=== PATIENT | female | born 1955 | race Caucasian/White ===

== ENCOUNTER 2023-06-26 17:07 | Emergency (ER) | payer OTHER, MEDICAID, SELFPAY ==
[2023-06-26 17:16] VITALS: BMI 22.1
--- NOTE | 2023-06-26 17:19 | DI.RAD.S_ITS ---
PROCEDURE: XR WRIST LT MIN 3V INDICATIONS: fall off chair TECHNIQUE: 3 views of the wrist were acquired. COMPARISON: None. FINDINGS: Bones: Moderately impacted and mildly displaced distal radius intra-articular fracture with traumatic positive ulnar variance. Superimposed degenerative changes, particularly at the base of the thumb. Soft tissues: There is soft tissue swelling. IMPRESSION: Distal radius fracture. Dictated by: Jonny Kolb M.D. on 06/26/2023 at 18:13 Approved by: Jonny Kobl M.D. on 06/26/2023 at 18:14
[2023-06-26 17:26] VITALS: BP 133/82; PULSE 91; RESP 16; O2SAT 98
[2023-06-26] MEDS: HYDROCODONE/ACET 5/325 TABLET 1 TAB PO (19:21)
[2023-06-26 19:32] VITALS: BP 132/83; PULSE 97; RESP 18; O2SAT 96
--- NOTE | 2023-06-26 19:41 | ED.FALL ---
HPI - Fall General Chief Complaint: Fall Stated Complaint: fall no thinners Time Seen by Provider: 06/26/23 17:59 Source: patient Mode of arrival: EMS Limitations: no limitations History of Present Illness HPI Narrative: Patient is a 68-year-old female here for evaluation of a left wrist injury. Patient states she was trying to sit on a rolling chair when it rolled out from underneath her and she fell landing on an outstretched hand. No other injuries from the event. An immediate pain in her hand. No elbow discomfort. No shoulder discomfort. Does have swelling to the left wrist. Related Data Previous Rx's Medication Instructions Recorded fluorouracil 5 % topical cream 1 phillip topical BID ##40 07/23/16 (Efudex) pimecrolimus 1 % topical cream 1 applic topical BID PRN 02/05/22 (Elidel) Eczematous dermatitis #30 grams triamcinolone acetonide 0.5 % 1 applic topical BID PRN Contact 02/05/22 topical cream dermatitis #15 grams nirmatrelvir 300 mg (150 mg See Rx Instructions PO .COMPLEX 08/08/22 x2)-ritonavir 100 mg tablet,dose #30 ea pack (Paxlovid) hydrocodone 5 mg-acetaminophen 325 1 tab PO Q4-6H PRN pain #20 tabs 06/26/23 mg tablet Allergies Allergy/AdvReac Type Severity Reaction Status Date / Time No Known Drug Allergies Allergy Verified 07/10/18 13:12 Review of Systems Constitutional Constitutional: Reports system reviewed and no additional complaints, except as documented Musculoskeletal Musculoskeletal: Reports system reviewed and no additional complaints, except as documented Integumentary/Breasts Skin/Breast: Reports system reviewed and no additional complaints, except as documented Neurologic Neurologic: Reports system reviewed and no additional complaints, except as documented Patient History Medical History Eczematous dermatitis Allergic dermatitis Social History Smoking Status: Never smoker Smoking Status: Never smoker Exam Initial Vital Signs Initial Vital Signs: Vital Signs Pulse Rate 91 H 06/26/23 17:26 Respiratory Rate 16 06/26/23 17:26 Blood Pressure 133/82 06/26/23 17:26 Pulse Oximetry 98 06/26/23 17:26 Oxygen Delivery Method Room Air 06/26/23 17:26 HENMT Head: normal to inspection Cardio Pulses: radial pulses present on the left Skin General: no rashes or lesions noted Neuro Sensory Exam: no sensory deficits noted Extrem Other: Swelling and discomfort with palpation of the left wrist. Left elbow unremarkable. Procedures Orthopedic Splinting/Casting Injury #1: Side: left Upper Extremity Injury Location: wrist Upper Extremity Immobilizer: sugar tong splint Post splinting neuro exam: intact Post splinting vascular exam: intact Placed by: Nursing Course Orders Ordered: ED Orders 06/26/23 17:19 XR wrist LT min 3V Stat Discontinued Medications Hydrocodone Bitart/Acetaminophen (Hydrocodone/Acet 5/325 Tablet) 1 tab PO NOW ONE Stop: 06/26/23 18:31 Last Admin: 06/26/23 19:21 Dose: 1 tab Documented By: TARSHA Hydrocodone Bitart/Acetaminophen (Hydrocodone/Acet 5/325 Prepack) 1 bottle MISC DIRECTED ONE Stop: 06/26/23 19:42 Last Admin: 06/26/23 19:53 Dose: 1 bottle Documented By: TARSHA Morphine Sulfate (Morphine 4 Mg/Ml Inj) 4 mg IM NOW ONE Stop: 06/26/23 19:42 Last Admin: 06/26/23 19:52 Dose: 4 mg Documented By: TARSHA Vital Signs Vital signs: Vital Signs - 8 hr 06/26/23 17:26 06/26/23 19:32 06/26/23 20:00 Pulse Rate 91 H 97 H 97 H Respiratory Rate 16 18 16 Blood Pressure 133/82 132/83 151/82 H Pulse Oximetry 98 96 98 Oxygen Delivery Method Room Air Room Air Room Air MDM - Fall Imaging Data Extremity x-ray #1: Radiologist's Impression: PROCEDURE: XR WRIST LT MIN 3V INDICATIONS: fall off chair TECHNIQUE: 3 views of the wrist were acquired. COMPARISON: None. FINDINGS: Bones: Moderately impacted and mildly displaced distal radius intra-articular fracture with traumatic positive ulnar variance. Superimposed degenerative changes, particularly at the base of the thumb. Soft tissues: There is soft tissue swelling. IMPRESSION: Distal radius fracture. [facility] Narrative Medical decision making narrative: Patient is neurovascularly intact. Has a distal radius fracture on the x-ray. She was placed in a sugar-tong splint and a sling. No other injuries from the event. Discharge home with pain medication and care instructions and return precautions. She does need follow-up with orthopedic surgery and she was given information for this as well. Discharge Plan Departure Patient Disposition: Home Clinical Impression: Fracture of wrist Instructions: DI for Wrist Fracture, How to Take Care of Your Splint Activity Restrictions/Additional Instructions: The splint that was placed today needs to stay on and stay clean and stay dry. You need to treat it like a cast. Tomorrow contact the orthopedic providers with the number provided below for a follow-up. Return to the emergency department for new symptoms. Prescriptions: New hydrocodone-acetaminophen 5-325 mg tablet 1 tab PO Q4-6H PRN (Reason: pain) Qty: 20 0RF No Action fluorouracil [Efudex] 5 % cream 1 phillip Topical BID Qty: 40 0RF Paxlovid 300 mg (150 mg x 2)-100 mg tablets,dose pack See Rx Instructions PO .COMPLEX Qty: 30 0RF Rx Instructions: take TWO 150 mg tablets of nirmatrelvir with ONE 100 mg tablet of ritonavir twice daily for 5 days PO pimecrolimus [Elidel] 1 % cream 1 applic topical BID PRN (Reason: Eczematous dermatitis) Qty: 30 1RF Rx Instructions: Apply sparingly to face twice daily triamcinolone acetonide 0.5 % cream 1 applic topical BID PRN (Reason: Contact dermatitis) Qty: 15 1RF Referrals: Arthur Lamb DO [Primary Care Provider] - Balbir Cole MD [Physician] - Stand Alone Forms: Patient Portal/API
[2023-06-26] MEDS: MORPHINE 4 MG/ML INJ IM (19:52)
[2023-06-26] MEDS: HYDROCODONE/ACET 5/325 PREPACK 1 BOTTLE MISC (19:53)
[2023-06-26 20:00] VITALS: BP 151/82; PULSE 97; RESP 16; O2SAT 98
--- NOTE | 2023-06-26 20:29 | PC.NURSE ---
PIV removed by FUNMI Castro.
== END 2023-06-26 20:35 | disposition home or self-care (01) ==
PROVIDERS: Emergency Provider Emergency Medicine; PCP Family Medicine
DX: S52.502A Unspecified fracture of the lower end of left radius, initial encounter for closed fracture (principal); W07.XXXA Fall from chair, initial encounter
CPT/HCPCS: 29125; 73110; 96372; 99283; 99284; J2270